=== PATIENT | male | born 1940 | race Caucasian/White ===

== ENCOUNTER 2019-03-02 08:48 | Day surgery (SDC) | payer MEDICARE ==
[~2019-03-02] VITALS: Ht 177.8 cm; Wt 81.2 kg
[2019-03-02] MEDS ORDERED: LOSA25 (09:35)
[2019-03-02] MEDS ORDERED: TAMS.4ER (09:36)
[2019-03-02] MEDS ORDERED: ATOR20 (09:36)
[2019-03-02] MEDS ORDERED: Metformin HCl850 MG (09:36)
[2019-03-02] MEDS ORDERED: LO-DOSE ASPIRIN81 MG (09:36)
[2019-03-02] MEDS ORDERED: METOPROLOL ER-1 EACH (09:36)
--- NOTE | 2019-03-02 12:34 | NUR ---
03/02/19 1234 Antoinette Yu PT DIFFICULT TO ROUSE, MAINTAINED CHIN LIFT AND O2. WILL OPEN EYES FOR SHORT SPURTS, MOANING BUT REQUIRES CONTINUOUS STIMULI. DR GARVEY WAS MADE AWARE OF PT STATUS AND ORDERED TO CONTINUE TO MONITOR AND NOTIFY HIM IF NEEDED
== END 2019-03-02 13:17 | disposition home or self-care (01) ==
LOC: ORSCSDS 08:48
PROVIDERS: Orthopaedic Surgery
PROC: 0JNK0ZZ Release Left Hand Subcutaneous Tissue and Fascia, Open Approach (ICD-10-PCS; principal; 2019-03-02 10:00)
PROC: 0LN80ZZ Release Left Hand Tendon, Open Approach (ICD-10-PCS; principal; 2019-03-02 10:00)
DX: M72.0 Palmar fascial fibromatosis [Dupuytren] (principal); I10 Essential (primary) hypertension; E11.9 Type 2 diabetes mellitus without complications; I25.10 Atherosclerotic heart disease of native coronary artery without angina pectoris; Z79.899 Other long term (current) drug therapy
CPT/HCPCS: 82947; 88304; J0690; J2250; J2704; J2795; J3010; J7120

== ENCOUNTER → 2019-07-05 | Outpatient (CLI) | payer MEDICARE ==
[~2019-07-05] MED LIST: ATOR20; LO-DOSE ASPIRIN81 MG; LOSA25; METOPROLOL ER-1 EACH; Metformin HCl850 MG; TAMS.4ER
== END | disposition home or self-care (01) ==
LOC: LAB SHORT 14:40 → PLD 14:40
DX: D18.01 Hemangioma of skin and subcutaneous tissue (principal)
CPT/HCPCS: 88305

== ENCOUNTER → 2020-01-10 | Outpatient (CLI) | payer MEDICARE | END | disposition home or self-care (01) | LOC: LAB SHORT 15:06 → PLD 15:06 | DX: L57.0 Actinic keratosis (principal); L82.1 Other seborrheic keratosis | CPT/HCPCS: 88305 ==

== ENCOUNTER 2021-07-15 04:21 | Inpatient (IN) | payer MEDICARE ==
[~2021-07-15] VITALS: Ht 177.8 cm; Wt 79.3 kg
[~2021-07-15 04:21] MED LIST changes: -ATOR20; +ATOR20 PO; -LOSA25; +LOSA25 PO; -Metformin HCl850 MG; +Metformin HCl850 MG PO; -TAMS.4ER; +TAMS.4ER PO
[2021-07-15 05:11] LABS: BASOPHILS ABSOLUTE AUTO 0.06 K/mm3 (0.00-0.23); BASOPHILS PERCENT AUTO 1 % (0-2); EOSINOPHILS ABSOLUTE AUTO 0.37 K/mm3 (0.00-0.68); EOSINOPHILS PERCENT AUTO 5 % (0-6); Hematocrit 40.8 % (37.0-53.0); Hemoglobin 13.4 g/dL (13.5-17.5); IMMATURE GRAN ABSOLUTE AUTO 0.03 K/mm3 (0.00-0.10); IMMATURE GRAN PERCENT AUTO 0 % (0-1); LYMPHOCYTES ABSOLUTE AUTO 1.79 K/mm3 (0.84-5.20); LYMPHOCYTES PERCENT AUTO 24 % (21-46); MONOCYTES ABSOLUTE AUTO 0.52 K/mm3 (0.16-1.47); MONOCYTES PERCENT AUTO 7 % (4-13); Mean Corpuscular HGB 31.8 pg (26.0-34.0); Mean Corpuscular HGB Conc 32.8 g/dL (31.5-36.5); Mean Corpuscular Volume 97 fL (80-100); Mean Platelet Volume 9.3 fL (9.1-12.4); NEUTROPHILS PERCENT AUTO 63 % (41-73); Platelet Count 208 K/mm3 (150-400); RDW Coefficient Variation 13.5 % (11.7-14.2); RDW Standard Deviation 48.3 fL (35.1-46.3); Red Blood Cell Count 4.22 M/mm3 (4.30-5.90); White Blood Cell Count 7.47 K/mm3 (4.00-11.30)
[2021-07-15 05:28] LABS: Alanine Aminotransfer (ALT/SGP 29 U/L (12-78); Albumin, Blood 3.3 g/dL (3.4-5.0); Alk Phos 77 U/L (50-136); Anion Gap 6 mmol/L (6-16); Aspartate Aminotrans (AST/SGOT 23 U/L (12-37); Bilirubin, Total 0.4 mg/dL (0.1-1.0); Blood Urea Nitrogen 21 mg/dL (8-24); Bun/Creatinine Ratio 19.1 (12.0-20.0); CO2, Blood 25 mmol/L (21-32); Calcium, Blood 8.9 mg/dL (8.5-10.1); Chloride, Blood 108 mmol/L (98-108); Globulin, Blood 3.3 g/dL (2.2-4.0); Glomerular Filtration Rate >60 (60-); Glucose, Blood 138 mg/dL (70-99); Magnesium, Blood 2.2 mg/dL (1.6-2.4); Potassium, Blood 4.6 mmol/L (3.5-5.5); Sodium, Blood 139 mmol/L (136-145); Total Protein, Blood 6.6 g/dL (6.4-8.2)
[2021-07-15 06:42] LABS: BASOPHILS ABSOLUTE AUTO 0.12 K/mm3 (0.00-0.23); BASOPHILS PERCENT AUTO 1 % (0-2); EOSINOPHILS ABSOLUTE AUTO 0.32 K/mm3 (0.00-0.68); EOSINOPHILS PERCENT AUTO 2 % (0-6); Hematocrit 44.5 % (37.0-53.0); Hemoglobin 13.8 g/dL (13.5-17.5); IMMATURE GRAN ABSOLUTE AUTO 0.19 K/mm3 (0.00-0.10); IMMATURE GRAN PERCENT AUTO 1 % (0-1); LYMPHOCYTES ABSOLUTE AUTO 4.69 K/mm3 (0.84-5.20); LYMPHOCYTES PERCENT AUTO 28 % (21-46); MONOCYTES ABSOLUTE AUTO 1.09 K/mm3 (0.16-1.47); MONOCYTES PERCENT AUTO 7 % (4-13); Mean Corpuscular HGB 31.7 pg (26.0-34.0); Mean Platelet Volume 9.6 fL (9.1-12.4); NEUTROPHILS ABSOLUTE AUTO 10.26 K/mm3 (1.96-9.15); NEUTROPHILS PERCENT AUTO 62 % (41-73); Platelet Count 222 K/mm3 (150-400); RDW Coefficient Variation 13.5 % (11.7-14.2); RDW Standard Deviation 51.6 fL (35.1-46.3); Red Blood Cell Count 4.35 M/mm3 (4.30-5.90); White Blood Cell Count 16.67 K/mm3 (4.00-11.30)
[2021-07-15 06:46] LABS: Mean Corpuscular Volume 102 fL (80-100)
[2021-07-15 07:03] LABS: Alanine Aminotransfer (ALT/SGP 31 U/L (12-78); Albumin, Blood 3.5 g/dL (3.4-5.0); Alk Phos 85 U/L (50-136); Anion Gap 10 mmol/L (6-16); Aspartate Aminotrans (AST/SGOT 29 U/L (12-37); Bilirubin, Total 0.5 mg/dL (0.1-1.0); Blood Urea Nitrogen 21 mg/dL (8-24); CO2, Blood 24 mmol/L (21-32); Chloride, Blood 108 mmol/L (98-108); Creatinine, Blood 1.05 mg/dL (0.60-1.20); Globulin, Blood 3.5 g/dL (2.2-4.0); Glomerular Filtration Rate >60 (60-); Glucose, Blood 165 mg/dL (70-99); Magnesium, Blood 2.2 mg/dL (1.6-2.4); Potassium, Blood 3.5 mmol/L (3.5-5.5); Sodium, Blood 142 mmol/L (136-145); Troponin I <0.015 ng/mL (0.000-0.040)
[2021-07-15 07:31] LABS: SARS-Cov-2 (COVID-19) PCR, MMC NEGATIVE (NEGATIVE)
[2021-07-15 08:34] LABS: PCO2 Arterial 35.5 mmHg (35-45); pH Blood Arterial 7.45 (7.35-7.45)
[2021-07-15 08:35] LABS: PO2 Arterial 72.8 mmHg (80-100)
--- NOTE | 2021-07-15 13:30 | NUR ---
INITIAL ASSESSMENT PATIENT ARRIVED FROM [employer] PRODUCTION SUPERVISOR AROUND 1300. PATIENT INTUBATED AND ON SEDATION. PATIENT APPEARED TO BE "SHIVERING" WHEN ARRIVED TO UNIT. PATIENT GIVEN 2 MG PRN IV ATIVAN AND SHIVERING STOPPED. PATIENT RESPONDING TO PAINFUL STIMULI BY WITHDRAWING EXTREMITIES TO NOXIOUS STIMULI. PUPILS 2+ AND REACT BRISKLY TO LIGHT. PATIENT AFEBRILE. NO SIGNS OF PAIN NOTED AT THIS TIME. PATIENT ON AC 15, TV 450, PEEP 5 AND 30% FIO2. SCANT AMOUNT OF BLOODY SPUTUM NOTED FROM ETT. MODERATE AMOUNT OF THICK, PAIGE/ PINK ORAL SECRETIONS NOTED. PATIENT IN FIRST DEGREE AND BBB. TEMPORARY PACEMAKER IN PLACE TO R IJ. RATE SET AT 40, OUTPUT AT 3.0 MILLIAMPS, SENSING AT 8.0 MILLIVOLTS. HR 40S TO 50S. SBP 150S TO 160S. GI APPEARS WNL. DR. CABRALES STATED NO NEED FOR OG AT THIS TIME. AVILES IN PLACE DRAINING YELLOW COLORED URINE. COCCYX REDDENED BUT BLANCHEABLE. PROPOFOL INFUSING AT 40 MCG/ KG/ MINUTE AND NS AT 100 MLS/ HOUR. BED LOW. WILL CONTINUE TO MONITOR PATIENT FREQUENTLY THROUGHOUT SHIFT.
[2021-07-15 14:19] LABS: U Amphetamine Screen Not Detected; U Barbituate Screen Not Detected; U Benzodiazapine Screen Not Detected; U Buprenorphine Screen Not Detected; U Cannabinoids Screen Not Detected; U Cocaine Screen Not Detected; U Methadone Screen Not Detected; U Methamphetamine Screen Not Detected; U Opiates Screen Not Detected; U Oxycodone Screen Not Detected; U Phencyclidine Screen Not Detected; U Propoxyphene Screen Not Detected
[2021-07-15 15:58] LABS: Automated CSF WBC Count 0.001 K/mm3 (0-5); WBC Count, CSF 1 /mm3 (0-5)
[2021-07-15 16:44] LABS: Appearance, CSF Clear (Clear); Color, CSF No Color (No Color); RBC Count, CSF 30 /mm3 (0-0)
[2021-07-15 16:46] LABS: RBC Count, CSF 0 /mm3 (0-0); WBC Count, CSF 0 /mm3 (0-5)
[2021-07-15 16:47] LABS: Appearance, CSF Clear (Clear); Color, CSF No Color (No Color)
[2021-07-15 16:49] LABS: Lymphocytes, CSF 55 % (40-80); Monocytes, CSF 27 % (15-45); Neutrophils, CSF 18 % (0-6)
[2021-07-15 16:52] LABS: Lymphocytes, CSF 50 % (40-80); Neutrophils, CSF 50 % (0-6)
[2021-07-15 18:21] LABS: Cryptococcus Neoformans/Gattii Not Detected (NOT DETECT); Enterovirus Not Detected (NOT DETECT); Escherichia Coli K1 Not Detected (NOT DETECT); Haemophilus Influenza Not Detected (NOT DETECT); Herpes Simplex Virus 1 Not Detected (NOT DETECT); Herpes Simplex Virus 2 Not Detected (NOT DETECT); Human Herpesvirus 6 Not Detected (NOT DETECT); Human Parechovirus Not Detected (NOT DETECT); Listeria Monocytogenes Not Detected (NOT DETECT); Neisseria Meningitidis Not Detected (NOT DETECT); Streptococcus Agalactiae Not Detected (NOT DETECT); Streptococcus Pneumoniae Not Detected (NOT DETECT); Varicella Zoster Virus Not Detected (NOT DETECT)
--- NOTE | 2021-07-15 18:50 | NUR ---
SHIFT SUMMARY PATIENT REMAINED INTUBATED AND ON SEDATION. PATIENT DID HAVE SHORT TIME OFF OF SEDATION FOR SECOND HALF OF EEG AND WAS ABLE TO OPEN EYES AND TRACK NURSE. NOT FOLLOWING ANY OTHER COMMANDS AT THIS TIME. GROSS MOVEMENT REMAINED TO ALL EXTREMITIES. PATIENT DID TRY TO GRAB AT ETT. PATIENT REMAINED AFEBRILE. PATIENT GIVEN PRN ATIVAN OT AT BEGINNING OF SHIFT FOR SHIVERING THOUGHT TO POSSIBLY BE SEIZURE ACTIVITY. BULK SAUSAGE CASING TIER OFF NOTED SHIVERING DURING EEG BUT STATED THAT NO SEIZURE ACTIVITY NOTED DURING SUCH EPISODES. PATIENT HAS REMAINED ON AC 15, TV 450, PEEP 5 AND 30% FIO2. DR. CABRALES CHECKED FOR CUFF LEAK AND CUFF LEAK WAS NOTED. PATIENT REMAINS HAVING SMALL AMOUNT OF BRIGHT RED TO DARKER RED SECRETIONS OUT FROM ETT. PATIENT REMAINED OCCASIONALLY PACED FOR HR UNDER 40. SBP 120S TO 160S. OUTPUT AND SENSING REMAIN THE SAME. NO CHANGE TO GI. PATIENT REMAINS NPO. NO BM THIS SHIFT. AVILES DRAINED ADEQUATE AMOUNT OF DARK YELLOW COLORED URINE. NO CHANGE TO SKIN. PATIENT REPOSITIONED Q2H. PROPOFOL AT 40 MCG/ KG/ MINUTE AND NS AT 100 MLS/ HOUR. URINARY TOX SCREEN NEGATIVE. LP PERFORMED THIS SHIFT. PATIENT APPEARS COMFORTABLE AT THIS TIME. REPORT WILL BE GIVEN TO [facility] ASSOCIATE NURSE SHORTLY.
--- NOTE | 2021-07-15 20:00 | NUR ---
ASSUMPTION OF CARE RECEIVED REPORT FROM ESTIVEN SANTIAGO AT 1930, ASSUMED CARE OF PATIENT. PATIENT IS VENTILATED AND SEDATED ON PROPOFOL OF 30MCG/KG, WITH SAS 3. VITALS STABLE. NO S/S OF DISTRESS. WILL REVIEW ORDERS AND TREAT PRESCRIBED.
[2021-07-16 01:08] LABS: BASOPHILS ABSOLUTE AUTO 0.04 K/mm3 (0.00-0.23); BASOPHILS PERCENT AUTO 0 % (0-2); EOSINOPHILS ABSOLUTE AUTO 0.12 K/mm3 (0.00-0.68); EOSINOPHILS PERCENT AUTO 1 % (0-6); Hematocrit 37.1 % (37.0-53.0); Hemoglobin 12.6 g/dL (13.5-17.5); IMMATURE GRAN ABSOLUTE AUTO 0.04 K/mm3 (0.00-0.10); IMMATURE GRAN PERCENT AUTO 0 % (0-1); LYMPHOCYTES ABSOLUTE AUTO 1.38 K/mm3 (0.84-5.20); LYMPHOCYTES PERCENT AUTO 11 % (21-46); MONOCYTES ABSOLUTE AUTO 1.34 K/mm3 (0.16-1.47); MONOCYTES PERCENT AUTO 11 % (4-13); Mean Corpuscular HGB 32.5 pg (26.0-34.0); Mean Corpuscular Volume 96 fL (80-100); Mean Platelet Volume 9.3 fL (9.1-12.4); NEUTROPHILS ABSOLUTE AUTO 9.75 K/mm3 (1.96-9.15); NEUTROPHILS PERCENT AUTO 77 % (41-73); Platelet Count 164 K/mm3 (150-400); RDW Coefficient Variation 13.8 % (11.7-14.2); Red Blood Cell Count 3.88 M/mm3 (4.30-5.90); White Blood Cell Count 12.67 K/mm3 (4.00-11.30)
[2021-07-16 01:28] LABS: Alanine Aminotransfer (ALT/SGP 24 U/L (12-78); Albumin, Blood 2.8 g/dL (3.4-5.0); Alk Phos 69 U/L (50-136); Anion Gap 6 mmol/L (6-16); Aspartate Aminotrans (AST/SGOT 26 U/L (12-37); Bilirubin, Total 1.1 mg/dL (0.1-1.0); Blood Urea Nitrogen 14 mg/dL (8-24); Bun/Creatinine Ratio 14.5 (12.0-20.0); CO2, Blood 25 mmol/L (21-32); Calcium, Blood 8.1 mg/dL (8.5-10.1); Chloride, Blood 113 mmol/L (98-108); Creatinine, Blood 0.97 mg/dL (0.60-1.20); Globulin, Blood 2.7 g/dL (2.2-4.0); Glomerular Filtration Rate >60 (60-); Glucose, Blood 101 mg/dL (70-99); Magnesium, Blood 1.7 mg/dL (1.6-2.4); Potassium, Blood 3.7 mmol/L (3.5-5.5); Sodium, Blood 144 mmol/L (136-145); Total Protein, Blood 5.5 g/dL (6.4-8.2)
--- NOTE | 2021-07-16 07:22 | NUR ---
SHIFT SUMMARY PATIENT INTUBATED AND SEDATED. PROPOFOL INCREASED TO 50MCG/KG/MIN DUE TO AGITATION. TEMP PACER IN PLACE WITH PACER SET TO 40. VITALS STABLE. REPORT GIVEN TO JIMMY SANTIAGO.
--- NOTE | 2021-07-16 10:04 | NUR ---
PT'S SEDATION PLACED ON STANDBY AND VENT SETTINGS CHANGED TO PRESSURE CONTROL, HOPEFUL TO EXTUBATE PT ONCE FULLY AWAKE
--- NOTE | 2021-07-16 11:09 | NUR ---
PT EXTUBATED TO 4L NC, DR CABRALES IN THE ROOM, PT ABLE TO FOLLOW SOME COMMANDS WEAKLY, LOTS OF ORAL SECRETIONS
--- NOTE | 2021-07-16 13:34 | NUR ---
ASSISTED PT TO SPEAK WITH HIS NATALYA ON THE PHONE
--- NOTE | 2021-07-16 14:01 | NUR ---
DR LEIVA HERE TO SEE THE PT, ADJUSTED TEMP PACER, RATE 50, OUTPUT 3.5, SENSITIVITY 8.0, PLAN IS FOR SPLITTER OPERATOR TOMORROW, PACER ON WEDNESDAY, DR ALSO SPOKE WITH PT'S ON THE PHONE
--- NOTE | 2021-07-16 14:45 | NUR ---
ADMIT: 07/15/21 DISCHARGE: TBD DX: SEIZURE CC: Oneyda Kraus NEXT OF KIN/CONTACT: NATALYA JOY [phone] RESIDENCE: [place] [id number] [place]. [id number] DME: NONE CCM: NONE HOME HEALTH PRIOR TO ADMIT: NONE Update 07/16/21: Pt. extubated today. Cardiology recommending coronary angiogram and possible PCI. Patient's agreeable. Per chart notes, plan for pt. laboratory sampler 07/17/21 and PPM on Wednesday. Counting Machine Operator spoke with patient's today. Plan to continue following patient's care and provide care coordination/discharge planning as needed. I will contact patient's tomorrow to introduce myself as the day care director and provide my contact informaiton.
--- NOTE | 2021-07-16 18:31 | NUR ---
SUMMARY PT SITTING UP IN BED, CONFUSED, STATES HE IS AT HOME WHEN ASKED, DOES FOLLOW COMMANDS, WAS ABLE TO SPEAK TO HIS ON THE PHONE EARLIER, PT FORGETFUL AND ATTEMPTS TO CLIMB OUT OF BED FREQUENTLY, ALMOST PULLED OUT TEMP PACER R IJ, ABRAHAM VEST PLACED FOR SAFETY, REORIENTED PT FREQUENTLY, PT REMAINS ON 4-5L OXYGEN PER NC, OCC APNEA NOTED WHILE SLEEPING, ORAL CARE AND SUCTION DONE NEEDED, VSS, WILL CONT TO MONITOR
--- NOTE | 2021-07-17 03:51 | NUR ---
BIPAP 14/8 WITH 3L O2 BLEED IN WITH BIOX 99%. PT RESTING GREAT.
[2021-07-17 04:05] LABS: BASOPHILS ABSOLUTE AUTO 0.07 K/mm3 (0.00-0.23); BASOPHILS PERCENT AUTO 1 % (0-2); EOSINOPHILS ABSOLUTE AUTO 0.21 K/mm3 (0.00-0.68); EOSINOPHILS PERCENT AUTO 2 % (0-6); Hematocrit 38.4 % (37.0-53.0); Hemoglobin 12.4 g/dL (13.5-17.5); IMMATURE GRAN ABSOLUTE AUTO 0.07 K/mm3 (0.00-0.10); IMMATURE GRAN PERCENT AUTO 1 % (0-1); LYMPHOCYTES ABSOLUTE AUTO 1.27 K/mm3 (0.84-5.20); LYMPHOCYTES PERCENT AUTO 10 % (21-46); MONOCYTES ABSOLUTE AUTO 1.45 K/mm3 (0.16-1.47); MONOCYTES PERCENT AUTO 12 % (4-13); Mean Corpuscular HGB Conc 32.3 g/dL (31.5-36.5); Mean Corpuscular Volume 99 fL (80-100); Mean Platelet Volume 9.9 fL (9.1-12.4); NEUTROPHILS ABSOLUTE AUTO 9.13 K/mm3 (1.96-9.15); NEUTROPHILS PERCENT AUTO 75 % (41-73); Platelet Count 173 K/mm3 (150-400); RDW Standard Deviation 51.6 fL (35.1-46.3); Red Blood Cell Count 3.88 M/mm3 (4.30-5.90)
[2021-07-17 04:34] LABS: Anion Gap 7 mmol/L (6-16); Blood Urea Nitrogen 11 mg/dL (8-24); Bun/Creatinine Ratio 10.7 (12.0-20.0); CO2, Blood 24 mmol/L (21-32); Calcium, Blood 8.6 mg/dL (8.5-10.1); Chloride, Blood 115 mmol/L (98-108); Creatinine, Blood 1.03 mg/dL (0.60-1.20); Glomerular Filtration Rate >60 (60-); Glucose, Blood 100 mg/dL (70-99); Magnesium, Blood 1.7 mg/dL (1.6-2.4); Potassium, Blood 3.8 mmol/L (3.5-5.5); Sodium, Blood 146 mmol/L (136-145)
--- NOTE | 2021-07-17 08:40 | NUR ---
Care Assumed 0700 PT a/o to location and able to follow directions. Moves all extrems, good ripper operator strength. Dr. Avalos at bedside, no new orders recieved. Sinus sam, paced, HR 50's. Bipap 14/8 with 3 L O2, SPO2 > 95%. Pt eyes but opens eyes when name is called. Able to state full name. vss. Pt to be taken to finishing lab technician shortly.
--- NOTE | 2021-07-17 08:47 | NUR ---
PT to [facility]lab with [facility] RN
--- NOTE | 2021-07-17 10:13 | NUR ---
Report given to PCU 11 Nurse Pt to go to PCU after catheter finisher and inspector and report given to JACK Cabral. All questions answered.
--- NOTE | 2021-07-17 11:45 | NUR ---
[facility] bed. Asleep, awakens to verbal stimuli. O2 @ 3l/nc. Temorary pacemaker Rate set at 50ppm, Sensitivity 3mv, Output 3.5V. R radial TR band in place with 15ml in band. site soft and nontender no hematoma. Femstop in place to right femoral artery with 160 mmHg. abdomen soft , no bruising or hematoma. Right Pedal and Tibial pulses 1+.
--- NOTE | 2021-07-17 12:50 | NUR ---
full procedural and post procedural report given to Janeen SANTIAGO PCU9.
--- NOTE | 2021-07-17 12:58 | NUR ---
PATIENT MORE AWAKE AND ALERT NOW. FEMSTOP IN PLACE WITH 92mmHg. RIGHT RADIAL TR BAND UNCHANGED.
--- NOTE | 2021-07-17 13:09 | NUR ---
RIGHT GROIN WITH FEM STOP IN PLACE STABLE; DR VINSON IN TO ASSESS PT; PT STATES HE HAS BACK PAIN FROM LAYING FLAT SEE NEW MD ORDERS. RIGHT RADIAL SITE WITH TR BAND AND WRIST BOARD IN PLACE STABLE. CALL LIGHT IN REACH. SP02 MONITOR ON RIGHT THUMB.
--- NOTE | 2021-07-17 14:15 | NUR ---
FENTYNAL 25 MCG IV FOR BACK PAIN. PT A&OX3. PAIN 5/10 IN LOWER BACK.
--- NOTE | 2021-07-17 14:31 | NUR ---
2cc's air removed from TR band. Site began to bleed.
--- NOTE | 2021-07-17 16:19 | NUR ---
TRANSFER NOTE- PT TO ICU ROOM 7 AFTER PROCEDURE. ANGIOPLASTY TO OM VESSEL. DROWSY, AWAKENS TO NAME AND ABLE TO FOLLOW DIRECTIONS AND ANSWER QUESTIONS. BACK TO SLEEP QUICKLY. BED ALARM ON. REVIEWED PRECAUTIONS. OXYGEN VIA NC AT 3 L/MIN NC, SATURATIONS STABLE. LUNGS CLEAR BUT VERY DIMINISHED. APICAL REGULAR WITH MURMER. NSR 60'S. PEDAL PULSE PALPABLE R DP/PT 1/1 L DP/PT 2/1. BILATERAL FEET COLD, SOME PURPLISH COLORATION. RIGHT RADIAL SITE WITH TR BAND, DEFLATED 2 CC, SITE WITH OLD DRAINAGE, NO SWELLING, HAND WARM, SENSATION INTACT. NET LEAD DEVELOPER LESS THAN 3 SECONDS. RIGHT ARM BOARD ON. NO N/V, DENIES ANY PAIN. UO VIA AVILES JEAN. PIV X [address] CABRALES AT BEDSIDE, REVIEWED ORDERS. TO GET D5 INFUSION FOR SODIUM LEVEL. HOLD LOVENOX, PLAN FOR PACEMAKER AND CANDIDA TOMORROW.
--- NOTE | 2021-07-17 17:30 | NUR ---
3582 RIGHT RADIAL SITE SHOWED NO SIGNS OF DISCHARGE, TR BAND DEFLATED, THEN REMOVED AND NO DISCHARGE/HEMATOMA NOTED. COVERED BY TEGADERM. ARMBOARD IN PLACE.
--- NOTE | 2021-07-17 18:15 | NUR ---
PT AWAKENS TO NAME, COOPERATIVE. NO S/S BLEEDING. RIGHT RADIAL SITE AND RIGHT FEMORAL SITE DI. PULSE PALP ALL EXTREMITIES. PACER INTACT RIJ. FOUL SMELLING BREATH-CONGESTED INFREQUENT COUGH-ORAL SUCTION FOR OLD BLOODY SECRETIONS. DENIES ANY PAIN. REPOSITIONED.
--- NOTE | 2021-07-17 19:30 | NUR ---
ASSUMED CARE PATIENT LYING IN BED AWAKE, A&O WITH NC IN PLACE. NO BELONGINGS AT BEDSIDE. ARM BOARD IN PLACE ON RT WRIST/FOREARM AND OPSITE TO RT FEMORAL ACCESS SITE. BOTH SITES C/D/I WITH NO HEMATOMA. PATIENT TRACKS TO SOUND AND ANSWERS QUESTIONS APPROPRIATELY. D5W INFUSING TO LT HAND @ 200ML/HR AND NS @ 10ML/HR. TEMP PACEMAKER IN PLACE WITH RATE OF 50. WILL CONTINUE TO MONITOR THROUGHOUT SHIFT.
[2021-07-18 03:48] LABS: BASOPHILS ABSOLUTE AUTO 0.09 K/mm3 (0.00-0.23); BASOPHILS PERCENT AUTO 1 % (0-2); EOSINOPHILS ABSOLUTE AUTO 0.35 K/mm3 (0.00-0.68); EOSINOPHILS PERCENT AUTO 3 % (0-6); Hematocrit 37.6 % (37.0-53.0); Hemoglobin 12.4 g/dL (13.5-17.5); IMMATURE GRAN ABSOLUTE AUTO 0.05 K/mm3 (0.00-0.10); IMMATURE GRAN PERCENT AUTO 0 % (0-1); LYMPHOCYTES ABSOLUTE AUTO 1.18 K/mm3 (0.84-5.20); LYMPHOCYTES PERCENT AUTO 10 % (21-46); MONOCYTES ABSOLUTE AUTO 1.42 K/mm3 (0.16-1.47); MONOCYTES PERCENT AUTO 12 % (4-13); Mean Corpuscular Volume 97 fL (80-100); NEUTROPHILS ABSOLUTE AUTO 8.68 K/mm3 (1.96-9.15); NEUTROPHILS PERCENT AUTO 74 % (41-73); Platelet Count 171 K/mm3 (150-400); RDW Coefficient Variation 13.7 % (11.7-14.2); Red Blood Cell Count 3.88 M/mm3 (4.30-5.90); White Blood Cell Count 11.77 K/mm3 (4.00-11.30)
[2021-07-18 04:05] LABS: Alanine Aminotransfer (ALT/SGP 22 U/L (12-78); Albumin, Blood 2.6 g/dL (3.4-5.0); Albumin/Globulin Ratio 0.9 (0.8-1.8); Alk Phos 75 U/L (50-136); Anion Gap 5 mmol/L (6-16); Aspartate Aminotrans (AST/SGOT 39 U/L (12-37); Bilirubin, Total 1.2 mg/dL (0.1-1.0); Blood Urea Nitrogen 11 mg/dL (8-24); Bun/Creatinine Ratio 11.2 (12.0-20.0); CO2, Blood 26 mmol/L (21-32); Calcium, Blood 8.4 mg/dL (8.5-10.1); Chloride, Blood 113 mmol/L (98-108); Creatinine, Blood 0.98 mg/dL (0.60-1.20); Glomerular Filtration Rate >60 (60-); Glucose, Blood 119 mg/dL (70-99); Sodium, Blood 144 mmol/L (136-145); Total Protein, Blood 5.6 g/dL (6.4-8.2)
--- NOTE | 2021-07-18 06:29 | NUR ---
SHIFT SUMMARY PATIENT SLEPT THROUGHOUT SHIFT; ABLE TO MAKE NEEDS KNOWN TO STAFF WITH USE OF CALL LIGHT. SUCTION KEPT IN BED WITH PATIENT FOR FREQUENT SELF SUCTIONING OF ORAL SECRETIONS. PATIENT WAS ABLE TO REPOSITION SELF WITH HELP SHIFTING HIPS. NS INF @ 50ML/HR INTO RT HAND PERIPHERAL IV; LT HAND PERIPHERAL IV SL. AVILES IN PLACE PATENT AND DRAINING TO GRAVITY; DARK YELLOW/ CLEAR URINE. ARTERIAL ACCESS SITES IN THE RT RADIAL AND RT FEMORAL ARTERIES REMAINED C/D/I WITHOUT ANY SIGNS OF BLEEDING OR HEMATOMA; OPSITES IN PLACE OVER SITES. PATIENT REMAINED NPO IN PREPERATION FOR CANDIDA & PERMANENT PACEMAKER PLACEMENT TODAY. NC IN PLACE @ 3LPM THROUGHOUT SHIFT KEEPING SATS >90%. NO OTHER MAJOR CHANGES THROUGHOUT SHIFT. WILL CONTINUE TO MONITOR UNTIL HANDOFF TO ONCOMING RN.
--- NOTE | 2021-07-18 08:15 | NUR ---
INITIAL ASSESSMENT PATIENT TANGIRNAQ. ALERT AND ORIENTED X 4. PATIENT HAS TEMP OF 99.2 DEGREES FAHRENHEIT. PUPILS 3+ AND REACT BRISKLY TO LIGHT. LUNGS DIMINISHED THROUGHOUT. PATIENT DESATTING TO LOW 80S WHILE SLEEPING. PATIENT ON 3 L NC TO KEEP SATS 90% AND GREATER. PATIENT RA AT HOME. PATIENT REPORTS PRODUCTIVE COUGH BUT THAT HE HAS NOT BEEN LOOKING AT THE SPUTUM. PATIENT PACED. TEMPORARY PACER TO R IJ, SET AT 50, OUTPUT AT 3.5 MA, SENSING AT 3.0 MV. HR 60S TO 70S. SBP 90S TO 120S. SCDS IN PLACE. GI APPEARS WNL. PATIENT IS NPO AT THIS TIME FOR PENDING PERMANENT PACEMAKER INSERTION. AVILES IN PLACE; DRAINING DARK YELLOW URINE. COCCYX REDDENED. NS INFUSING AT 50 MLS/ HOUR. PATIENT DENIES PAIN. BED LOW, CALL LIGHT IN REACH. WILL CONTINUE TO MONITOR PATIENT FREQUENTLY THROUGHOUT SHIFT.
[2021-07-18] MEDS ORDERED: ASPI81CH PO ×2 (08:35→08:37)
[2021-07-18] MEDS ORDERED: METO25 PO (08:36)
--- NOTE | 2021-07-18 15:36 | NUR ---
PATIENT REMAINED ALERT AND ORIENTED X 4, [place]. PATIENT WENT TO DEPUTY CITY CLERK TODAY AND HAVE DUAL CHAMBER PACEMAKER INSERTED INTO L CHEST WALL. PATIENT HAD NO COMPLAINTS OF PAIN. PATIENT LETHARGIC AND HAS BEEN SLEEPING SINCE RETURNING FROM PROCEDURE. PATIENT REMAINS SATTING 90% AND GREATER ON RA TO 3 L NC WHEN AWAKE AND ON 6 L TO BIPAP 10/5 WHILE ASLEEP. PATIENT DOES HAVE KAYA LISTED ON HISTORY. PATIENT CONTINUES TO HAVE MOIST, PRODUCTIVE COUGH. HR HAS RANGED FROM 50S TO 80S. SBP 90S TO 160S. PACEMAKER SET AT RATE OF 60. NO BM THIS SHIFT. PATIENT HAS BEEN NPO BUT HAS BEEN CHANGED TO CARDIAC DIET POST PROCEDURE. AVILES REMAINS DRAINING DARK YELLOW COLORED URINE. KERMIT AND TEGADERM TO R IJ WHERE TEMPORARY PACEMAKER WAS PLACED. IVS SALINE LOCKED. CANDIDA PERFORMED IN DEPUTY CITY CLERK. PATIENT TRANSFERRING TO SURGICAL FLOOR, ROOM 210, SHORTLY.
--- NOTE | 2021-07-18 15:48 | NUR ---
PATIENT TRANSFERRED TO SURGICAL FLOOR, ROOM 210. VOICEMAIL LEFT ON 'S PHONE INFORMING HER THAT HER HAS CHANGED UNITS AND ROOMS.
--- NOTE | 2021-07-18 16:47 | NUR ---
TELE VERIFIED WITH nVoq AT THIS TIME. NSR, HR 72
--- NOTE | 2021-07-18 20:00 | NUR ---
TRANSFER: REPORT RECEIVED FROM TAX PROFESSIONAL ESTIVEN. PT TO UNIT AT ABOUT 1600. A/O, SURGICAL SITE TO L CHEST WNL WELL AT R GROIN SITE. PT GIVEN CALL LIGHT, ORIENTED TO ROOM. BED ALARM ON FOR SAFETY, WILL CTM.
[2021-07-19 05:45] LABS: BASOPHILS ABSOLUTE AUTO 0.06 K/mm3 (0.00-0.23); BASOPHILS PERCENT AUTO 1 % (0-2); EOSINOPHILS ABSOLUTE AUTO 0.66 K/mm3 (0.00-0.68); EOSINOPHILS PERCENT AUTO 7 % (0-6); Hematocrit 35.1 % (37.0-53.0); Hemoglobin 11.7 g/dL (13.5-17.5); IMMATURE GRAN ABSOLUTE AUTO 0.05 K/mm3 (0.00-0.10); IMMATURE GRAN PERCENT AUTO 1 % (0-1); LYMPHOCYTES ABSOLUTE AUTO 1.11 K/mm3 (0.84-5.20); LYMPHOCYTES PERCENT AUTO 12 % (21-46); MONOCYTES ABSOLUTE AUTO 1.28 K/mm3 (0.16-1.47); MONOCYTES PERCENT AUTO 14 % (4-13); Mean Corpuscular HGB 32.2 pg (26.0-34.0); Mean Corpuscular HGB Conc 33.3 g/dL (31.5-36.5); Mean Corpuscular Volume 97 fL (80-100); Mean Platelet Volume 9.3 fL (9.1-12.4); NEUTROPHILS ABSOLUTE AUTO 6.35 K/mm3 (1.96-9.15); NEUTROPHILS PERCENT AUTO 67 % (41-73); Platelet Count 160 K/mm3 (150-400); RDW Coefficient Variation 13.4 % (11.7-14.2); RDW Standard Deviation 48.4 fL (35.1-46.3); Red Blood Cell Count 3.63 M/mm3 (4.30-5.90); White Blood Cell Count 9.51 K/mm3 (4.00-11.30)
[2021-07-19 06:19] LABS: Alanine Aminotransfer (ALT/SGP 25 U/L (12-78); Albumin, Blood 2.4 g/dL (3.4-5.0); Albumin/Globulin Ratio 0.8 (0.8-1.8); Alk Phos 79 U/L (50-136); Anion Gap 5 mmol/L (6-16); Aspartate Aminotrans (AST/SGOT 37 U/L (12-37); Bilirubin, Total 1.1 mg/dL (0.1-1.0); Blood Urea Nitrogen 15 mg/dL (8-24); Bun/Creatinine Ratio 15.2 (12.0-20.0); CO2, Blood 27 mmol/L (21-32); Calcium, Blood 8.6 mg/dL (8.5-10.1); Chloride, Blood 111 mmol/L (98-108); Creatinine, Blood 0.99 mg/dL (0.60-1.20); Globulin, Blood 3.2 g/dL (2.2-4.0); Glomerular Filtration Rate >60 (60-); Glucose, Blood 139 mg/dL (70-99); Potassium, Blood 3.8 mmol/L (3.5-5.5); Sodium, Blood 143 mmol/L (136-145); Total Protein, Blood 5.6 g/dL (6.4-8.2)
--- NOTE | 2021-07-19 08:00 | NUR ---
SHIFT SUMMARY POD#1 PACER AAOX4. DISCOMFORT AT TOLERABLE LEVEL T/O NIGHT, DENIES PAIN MEDS. NO NAUSEA/EMESIS. DRESSING TO LEFT CHEST WELL C/D/I. LUNG SOUNDS DIMINISHED, ENCOURAGED DEEP BREATHING. TELEMETRY IN PLACE, NSR 80s. AVILES SECURE/DRAINING YELLOW. PREVIOUS IJ SITE TO RIGHT NECK C/D/I. PREVIOUS TR BAND SITE TO LEFT RADIUS C/D/I. RIGHT FEMORAL SITE C/D/I. PT RESTED WELL T/O NIGHT. REPORT TO DAY SHIFT RN BOLIVAR AT THIS TIME.
--- NOTE | 2021-07-19 16:39 | NUR ---
SHIFT SUMMARY AA0X4. PT WORKED WITH THERAPY TODAY. UNSTEADY ON HIS FEET, BUT USES WALKER WELL. AVILES REMOVED, AWAITING FIRST VOID, RESTARTED [employer] HOME DOSE. CLEARED FOR DISCHARGE WITH CARDIOLOGY. PLAN IS FOR DISCHARGE TOMORROW. PACED PER TELE DURING SHIFT. NO CHEST DISCOMFORT.
--- NOTE | 2021-07-20 05:15 | NUR ---
SHIFT SUMMARY POD#2 PACER PLACEMENT. AAOX4. DISCOMFORT AT TOLERABLE LEVEL T/O NIGHT. NO NAUSEA/EMESIS. DRESSING TO LEFT CHEST WELL C/D/I. TELEMETRY NSR WITH BBB 60s. PT UP WALKING IN HALLS X2 THIS AM, SBA WITH FWW. GOOD PO INTAKE. BLADDER SCAN AT MIDNIGHT WITH 400cc+ RESIDUAL, PT REFUSED STRAIGHT CATH. UPON AWAKENING THIS AM PT VOIDED X1 UNMEASURED WITH PT SITTING UP IN CHAIR PER REQUEST. WILL BLADDER SCAN POST VOID UPON PT'S RETURN TO BED.
[2021-07-20 05:54] LABS: BASOPHILS ABSOLUTE AUTO 0.07 K/mm3 (0.00-0.23); BASOPHILS PERCENT AUTO 1 % (0-2); EOSINOPHILS ABSOLUTE AUTO 0.93 K/mm3 (0.00-0.68); EOSINOPHILS PERCENT AUTO 10 % (0-6); Hematocrit 33.9 % (37.0-53.0); Hemoglobin 11.1 g/dL (13.5-17.5); IMMATURE GRAN ABSOLUTE AUTO 0.08 K/mm3 (0.00-0.10); IMMATURE GRAN PERCENT AUTO 1 % (0-1); LYMPHOCYTES ABSOLUTE AUTO 1.17 K/mm3 (0.84-5.20); LYMPHOCYTES PERCENT AUTO 13 % (21-46); MONOCYTES ABSOLUTE AUTO 1.14 K/mm3 (0.16-1.47); MONOCYTES PERCENT AUTO 12 % (4-13); Mean Corpuscular HGB 31.9 pg (26.0-34.0); Mean Corpuscular HGB Conc 32.7 g/dL (31.5-36.5); Mean Corpuscular Volume 97 fL (80-100); Mean Platelet Volume 9.8 fL (9.1-12.4); NEUTROPHILS ABSOLUTE AUTO 5.98 K/mm3 (1.96-9.15); NEUTROPHILS PERCENT AUTO 64 % (41-73); Platelet Count 158 K/mm3 (150-400); RDW Coefficient Variation 13.4 % (11.7-14.2); RDW Standard Deviation 48.2 fL (35.1-46.3); Red Blood Cell Count 3.48 M/mm3 (4.30-5.90); White Blood Cell Count 9.37 K/mm3 (4.00-11.30)
[2021-07-20 06:22] LABS: Alanine Aminotransfer (ALT/SGP 56 U/L (12-78); Albumin, Blood 2.4 g/dL (3.4-5.0); Albumin/Globulin Ratio 0.7 (0.8-1.8); Alk Phos 92 U/L (50-136); Anion Gap 4 mmol/L (6-16); Aspartate Aminotrans (AST/SGOT 69 U/L (12-37); Bilirubin, Total 1.1 mg/dL (0.1-1.0); Blood Urea Nitrogen 19 mg/dL (8-24); Bun/Creatinine Ratio 17.6 (12.0-20.0); CO2, Blood 29 mmol/L (21-32); Calcium, Blood 9.3 mg/dL (8.5-10.1); Chloride, Blood 107 mmol/L (98-108); Creatinine, Blood 1.08 mg/dL (0.60-1.20); Globulin, Blood 3.3 g/dL (2.2-4.0); Glomerular Filtration Rate >60 (60-); Glucose, Blood 149 mg/dL (70-99); Potassium, Blood 3.5 mmol/L (3.5-5.5); Sodium, Blood 140 mmol/L (136-145); Total Protein, Blood 5.7 g/dL (6.4-8.2)
[2021-07-20] MEDS ORDERED: CLIN150 PO (13:04)
[2021-07-20] MEDS ORDERED: Benadryl Itch28.3 G1 TOP (13:05)
--- NOTE | 2021-07-20 15:17 | NUR ---
DISCHARGE PT LEFT VIA WHEELCHAIR. DISCHARGE INSTRUCTIONS GONE OVER WITH PATIENT. EXPRESSED IMPORTANCE OF SLING AND FOLLOW UP APPOINTMENTS WITH PATIENT. PACEMAKER CARD GIVEN TO PATIENT TO KEEP WITH HIM. IVS REMOVED PRIOR TO DISCHARGE. PT DENIED PAIN AND WAS AMBULATING WELL. WILL BE SEEN BY HOME HEALTH.
== END 2021-07-20 14:24 | disposition home health service (06) | DRG 242 ==
LOC: ER 04:21 → ERHOLD 08:13 → ICUE 08:13 → PCU 07-17 10:38 → ICUE 07-17 15:57 → SURS 07-18 15:39
PROVIDERS: Emergency Medicine; Family Medicine; Internal Medicine Critical Care Medicine; ADMIT Internal Medicine
PROC: 02HK3JZ Insertion of Pacemaker Lead into Right Ventricle, Percutaneous Approach (ICD-10-PCS; 2021-07-15)
PROC: 5A1213Z Performance of Cardiac Pacing, Intermittent (ICD-10-PCS; 2021-07-15)
PROC: 5A1935Z Respiratory Ventilation, Less than 24 Consecutive Hours (ICD-10-PCS; 2021-07-15)
PROC: 5A12012 Performance of Cardiac Output, Single, Manual (ICD-10-PCS; 2021-07-15)
PROC: 0BH18EZ Insertion of Endotracheal Airway into Trachea, Via Natural or Artificial Opening Endoscopic (ICD-10-PCS; 2021-07-15)
PROC: B2111ZZ Fluoroscopy of Multiple Coronary Arteries using Low Osmolar Contrast (ICD-10-PCS; 2021-07-17)
PROC: 02703ZZ Dilation of Coronary Artery, One Artery, Percutaneous Approach (ICD-10-PCS; 2021-07-17)
PROC: B2181ZZ Fluoroscopy of Left Internal Mammary Bypass Graft using Low Osmolar Contrast (ICD-10-PCS; 2021-07-17)
PROC: B2121ZZ Fluoroscopy of Single Coronary Artery Bypass Graft using Low Osmolar Contrast (ICD-10-PCS; 2021-07-17)
PROC: 0JH606Z Insertion of Pacemaker, Dual Chamber into Chest Subcutaneous Tissue and Fascia, Open Approach (ICD-10-PCS; principal; 2021-07-18)
PROC: 02H63JZ Insertion of Pacemaker Lead into Right Atrium, Percutaneous Approach (ICD-10-PCS; 2021-07-18)
PROC: 02HK3JZ Insertion of Pacemaker Lead into Right Ventricle, Percutaneous Approach (ICD-10-PCS; 2021-07-18)
DX: I47.2 Ventricular tachycardia (principal); J96.90 Respiratory failure, unspecified, unspecified whether with hypoxia or hypercapnia; I34.0 Nonrheumatic mitral (valve) insufficiency; R00.1 Bradycardia, unspecified; I25.10 Atherosclerotic heart disease of native coronary artery without angina pectoris; Z20.822 Contact with and (suspected) exposure to COVID-19; I48.91 Unspecified atrial fibrillation; I46.9 Cardiac arrest, cause unspecified; I10 Essential (primary) hypertension; E11.9 Type 2 diabetes mellitus without complications; R33.8 Other retention of urine; E78.5 Hyperlipidemia, unspecified; N40.0 Benign prostatic hyperplasia without lower urinary tract symptoms; Z90.89 Acquired absence of other organs; Z98.890 Other specified postprocedural states; Z91.018 Allergy to other foods; Z79.82 Long term (current) use of aspirin; Z79.899 Other long term (current) drug therapy; Z79.84 Long term (current) use of oral hypoglycemic drugs; Z95.2 Presence of prosthetic heart valve; Z95.1 Presence of aortocoronary bypass graft
CPT/HCPCS: 31500; 33208; 33210; 36415; 36600; 51702; 70450; 71045; 76937; 80048; 80053; 82803; 82945; 82947; 83735; 84157; 84439; 84443; 84484; 85025; 85347; 87070; 87205; 87483; 89051; 92921; 92950; 93005; 93010; 93306; 93312; 93325; 93455; 94002; 94003; 94660; 95819; 96365-59; 96375-59; 96376-59; 97110; 97116; 97162; 97530; 99152; 99153; 99291-25; A9270; C1725; C1769; C1781; C1785; C1887; C1894; C1898; C9113; J0461; J0690; J0696; J1644; J1650; J1953; J2060; J2250; J2704; J3010; J3370; J7030; J7040; J7042; J7050; J7070; Q9967; U0004

== ENCOUNTER → 2022-11-16 | Outpatient (CLI) | payer MEDICARE ==
[~2022-11-16] MED LIST changes: +ASPI81CH PO; +Benadryl Itch28.3 G1 TOP; +CLIN150 PO; +METO25 PO
[2022-11-16 09:52] LABS: BASOPHILS ABSOLUTE AUTO 0.05 K/mm3 (0.00-0.23); BASOPHILS PERCENT AUTO 0 % (0-2); EOSINOPHILS ABSOLUTE AUTO 0.03 K/mm3 (0.00-0.68); EOSINOPHILS PERCENT AUTO 0 % (0-6); Hematocrit 41.3 % (37.0-53.0); Hemoglobin 13.8 g/dL (13.5-17.5); IMMATURE GRAN ABSOLUTE AUTO 0.07 K/mm3 (0.00-0.10); IMMATURE GRAN PERCENT AUTO 0 % (0-1); LYMPHOCYTES ABSOLUTE AUTO 1.43 K/mm3 (0.84-5.20); LYMPHOCYTES PERCENT AUTO 8 % (21-46); MONOCYTES ABSOLUTE AUTO 1.64 K/mm3 (0.16-1.47); MONOCYTES PERCENT AUTO 9 % (4-13); Mean Corpuscular HGB 32.2 pg (26.0-34.0); Mean Corpuscular HGB Conc 33.4 g/dL (31.5-36.5); Mean Corpuscular Volume 96 fL (80-100); Mean Platelet Volume 9.1 fL (9.1-12.4); NEUTROPHILS ABSOLUTE AUTO 14.47 K/mm3 (1.96-9.15); NEUTROPHILS PERCENT AUTO 82 % (41-73); Platelet Count 240 K/mm3 (150-400); RDW Coefficient Variation 14.3 % (11.7-14.2); RDW Standard Deviation 50.4 fL (35.1-46.3); Red Blood Cell Count 4.29 M/mm3 (4.30-5.90); White Blood Cell Count 17.69 K/mm3 (4.00-11.30)
[2022-11-16 09:59] LABS: Bun/Creatinine Ratio 21.4 (12.0-20.0); Creatinine, Blood 1.45 mg/dL (0.60-1.20); Potassium, Blood 3.8 mmol/L (3.5-5.5)
== END | disposition home or self-care (01) ==
LOC: LAB SHORT 09:49 → LAB 09:49
PROVIDERS: Physician Assistant
DX: R22.1 Localized swelling, mass and lump, neck (principal)
CPT/HCPCS: 80048; 85025

== ENCOUNTER → 2022-11-18 | Outpatient (CLI) | payer MEDICARE ==
[2022-11-18 07:58] LABS: BASOPHILS ABSOLUTE AUTO 0.07 K/mm3 (0.00-0.23); BASOPHILS PERCENT AUTO 1 % (0-2); EOSINOPHILS ABSOLUTE AUTO 0.14 K/mm3 (0.00-0.68); EOSINOPHILS PERCENT AUTO 2 % (0-6); Hematocrit 34.5 % (37.0-53.0); Hemoglobin 11.3 g/dL (13.5-17.5); IMMATURE GRAN ABSOLUTE AUTO 0.05 K/mm3 (0.00-0.10); IMMATURE GRAN PERCENT AUTO 1 % (0-1); LYMPHOCYTES ABSOLUTE AUTO 1.58 K/mm3 (0.84-5.20); LYMPHOCYTES PERCENT AUTO 17 % (21-46); MONOCYTES ABSOLUTE AUTO 1.04 K/mm3 (0.16-1.47); MONOCYTES PERCENT AUTO 11 % (4-13); Mean Corpuscular HGB 31.7 pg (26.0-34.0); Mean Corpuscular HGB Conc 32.8 g/dL (31.5-36.5); Mean Corpuscular Volume 97 fL (80-100); Mean Platelet Volume 8.8 fL (9.1-12.4); NEUTROPHILS ABSOLUTE AUTO 6.47 K/mm3 (1.96-9.15); NEUTROPHILS PERCENT AUTO 69 % (41-73); Platelet Count 246 K/mm3 (150-400); RDW Coefficient Variation 13.9 % (11.7-14.2); RDW Standard Deviation 49.5 fL (35.1-46.3); Red Blood Cell Count 3.56 M/mm3 (4.30-5.90); White Blood Cell Count 9.35 K/mm3 (4.00-11.30)
== END ==
LOC: LAB SHORT 07:55 → LAB 07:55
PROVIDERS: Physician Assistant
DX: L03.90 Cellulitis, unspecified (principal)
CPT/HCPCS: 85025

== ENCOUNTER 2023-04-03 07:47 | Observation (INO) | payer MEDICARE ==
[~2023-04-03] VITALS: Ht 177.8 cm; Wt 81.4 kg
[~2023-04-03 07:47] MED LIST changes: +ATOR10 PO; -ATOR20 PO
[2023-04-03 08:26] LABS: BASOPHILS ABSOLUTE AUTO 0.09 K/mm3 (0.00-0.23); BASOPHILS PERCENT AUTO 1 % (0-2); EOSINOPHILS ABSOLUTE AUTO 0.32 K/mm3 (0.00-0.68); EOSINOPHILS PERCENT AUTO 5 % (0-6); Hematocrit 39.8 % (37.0-53.0); Hemoglobin 13.2 g/dL (13.5-17.5); IMMATURE GRAN ABSOLUTE AUTO 0.02 K/mm3 (0.00-0.10); IMMATURE GRAN PERCENT AUTO 0 % (0-1); LYMPHOCYTES PERCENT AUTO 24 % (21-46); MONOCYTES ABSOLUTE AUTO 0.56 K/mm3 (0.16-1.47); MONOCYTES PERCENT AUTO 8 % (4-13); Mean Corpuscular HGB 31.5 pg (26.0-34.0); Mean Corpuscular HGB Conc 33.2 g/dL (31.5-36.5); Mean Corpuscular Volume 95 fL (80-100); Mean Platelet Volume 9.4 fL (9.1-12.4); NEUTROPHILS ABSOLUTE AUTO 4.27 K/mm3 (1.96-9.15); NEUTROPHILS PERCENT AUTO 61 % (41-73); Platelet Count 228 K/mm3 (150-400); RDW Coefficient Variation 13.7 % (11.7-14.2); RDW Standard Deviation 48.1 fL (35.1-46.3); Red Blood Cell Count 4.19 M/mm3 (4.30-5.90); White Blood Cell Count 6.96 K/mm3 (4.00-11.30)
[2023-04-03 08:44] LABS: Albumin, Blood 3.6 g/dL (3.4-5.0); Albumin/Globulin Ratio 1.1 (0.8-1.8); Bilirubin, Total 0.7 mg/dL (0.1-1.0); Calcium, Blood 9.4 mg/dL (8.5-10.1); Globulin, Blood 3.2 g/dL (2.2-4.0); Potassium, Blood 4.6 mmol/L (3.5-5.5); Total Protein, Blood 6.8 g/dL (6.4-8.2)
[2023-04-03 13:09] VITALS: BP 121/63
[2023-04-03] MEDS ORDERED: FINA5 PO (13:17)
[2023-04-03] MEDS ORDERED: Hydrochloroth12.5 MG PO (13:18)
[2023-04-03 15:57] VITALS: BP 139/77
--- NOTE | 2023-04-03 17:03 | NUR ---
SUMMARY- PT ARRIVED FROM THE ER IN STABLE CONDITION. NO COMPLAINTS OR S/S OF SEIZURES THIS SHIFT. PT IS SBA. SLIGHT WEAKNESS IN BLE NOTED. AAOX4. CALLS APPROPRIATELY.
[2023-04-03 20:26] VITALS: BP 134/81
[2023-04-04 03:29] VITALS: BP 125/74
--- NOTE | 2023-04-04 06:37 | NUR ---
SLEEP STUDY COMPLETED LAST NIGHT. PT IS AO, INDEPENDENT, PLEASANT. TELE ON, BRADYCARDIC IN 50'S. NO SEIZURE ACTIVITY NOTED, SEIZURE PRECAUTIONS IN PLACE. REQUESTING PACEMAKER INTERROGATION. SLEPT MOST OF THE NIGHT.
[2023-04-04 07:45] VITALS: BP 122/69
[2023-04-04] MEDS ORDERED: LEVE500 PO (10:27)
--- NOTE | 2023-04-04 11:52 | NUR ---
DISCHARGE PT A&O4 TOLERATING PO INTAKE. MEDS FAXED TO [facility]. IV & TELE REMOVED. FAMILY TO PROVIDE TRANSPORT, DENIES NEED FOR WC ESCORT TO [place].
== END 2023-04-04 11:14 | disposition home or self-care (01) ==
LOC: ER 07:47 → MEDS 07:48 → ENPENDDIS 04-04 10:30 → MEDS 04-04 11:14
PROVIDERS: Student in an Organized Health Care Education/Training Program; ADMIT Hospitalist
DX: G40.409 Other generalized epilepsy and epileptic syndromes, not intractable, without status epilepticus (principal); E11.9 Type 2 diabetes mellitus without complications; Z79.84 Long term (current) use of oral hypoglycemic drugs; I10 Essential (primary) hypertension; I25.10 Atherosclerotic heart disease of native coronary artery without angina pectoris; Z95.1 Presence of aortocoronary bypass graft; Z95.0 Presence of cardiac pacemaker; Z91.018 Allergy to other foods; Z91.048 Other nonmedicinal substance allergy status
CPT/HCPCS: 70450; 71045; 80053; 84484; 85025; 93005; 93010; 94760; 94762; 96372; 99285-25; A9270; G0378; J1650

== ENCOUNTER 2025-05-31 10:59 | Day surgery (SDC) | payer OTHER ==
[~2025-05-31] VITALS: Ht 177.2 cm; Wt 78.2 kg
[~2025-05-31 10:59] MED LIST changes: +Balanced Salt Epinephrine Irrigation Solution 500 mL IR SCH; +FINA5 PO; +Hydrochloroth12.5 MG PO; +LEVE500 PO; +Moxifloxacin HCL 0.5 MG/0.1 ML 0.4MLSYR RIGHTEYE SCH; +NS 500 ML IV ONE; +PHENYLEPHRINE\\TROPICAMIDE\\TETRACAINE OPHTHALMIC DILATING SOLN RIGHTEYE PRN; +Povidone-Iodine 450 DROP/30 ML Solution ONE; +Povidone-Iodine 450 DROP/30 ML Solution RIGHTEYE SCH; +Tetracaine HCl/Pf 0.5% Opth Soln 4 ml ONE; +Triamcinolone Inj Susp 40 MG / ML 1ML Vial INJ SCH; +Triamcinolone Inj Susp 40 MG / ML 1ML Vial ONE
[2025-05-31] MEDS ORDERED: NS 500 ML IV ONE (11:17)
[2025-05-31] MEDS ORDERED: ELIQUIS5 M2 PO (11:27)
[2025-05-31] MEDS ORDERED: METO25 PO (11:29)
[2025-05-31] MEDS ORDERED: Midazolam HCl 1MG / ML 2ML Vial ONE (12:09)
[2025-05-31 12:38] VITALS: BP 140/77
--- NOTE | 2025-05-31 13:11 | NUR ---
05/31/25 1311 ManleyConnor witt PT DENIES PAIN AND NAUSEA AT THIS TIME. PT AGREEABLE TO D/C HOME WITH NATALYA.
== END 2025-05-31 13:10 | disposition home or self-care (01) ==
LOC: ORSCSDS 10:59
PROVIDERS: Ophthalmology
PROC: 08RJ3JZ Replacement of Right Lens with Synthetic Substitute, Percutaneous Approach (ICD-10-PCS; principal; 2025-05-31 12:30)
DX: E11.36 Type 2 diabetes mellitus with diabetic cataract (principal); H25.813 Combined forms of age-related cataract, bilateral; H52.201 Unspecified astigmatism, right eye; I25.10 Atherosclerotic heart disease of native coronary artery without angina pectoris; I25.2 Old myocardial infarction; I10 Essential (primary) hypertension; Z95.0 Presence of cardiac pacemaker; G40.909 Epilepsy, unspecified, not intractable, without status epilepticus; Z85.850 Personal history of malignant neoplasm of thyroid; Z85.118 Personal history of other malignant neoplasm of bronchus and lung; Z79.01 Long term (current) use of anticoagulants; Z79.899 Other long term (current) drug therapy; Z79.84 Long term (current) use of oral hypoglycemic drugs
CPT/HCPCS: 82947; J2003; J2250; J3301; J7040; V2632